=== PATIENT | female | born 1935 | race Caucasian/White ===

== ENCOUNTER 2016-06-24 08:06 | Day surgery (SDC) | payer MEDICARE, OTHER ==
[2016-06-20 12:43] LABS: BASOPHILS 0.1 %; BASOPHILS ABSOLUTE 0.01 10/3/uL (0.0-0.16); EOSINOPHILS 1.3 %; HEMATOCRIT 36.6 % (36.0-48.0); HEMOGLOBIN 12.9 g/dL (12.0-16.0); IMMATURE GRANULOCYTES 0.3 %; IMMATURE GRANULOCYTES ABSOLUTE 0.02 10/3/uL (0.0-0.11); LYMPHOCYTES 26.7 %; LYMPHOCYTES ABSOLUTE 2.04 10/3/uL (0.67-4.30); MEAN CORPUSCULAR HEMOGLOB 33.7 pg (26.0-34.0); MEAN PLATELET VOLUME 10.2 fL (9.2-13.0); MONOCYTES 7.5 %; MONOCYTES ABSOLUTE 0.57 10/3/uL (0.21-1.20); NEUTROPHILS 64.1 %; NEUTROPHILS ABSOLUTE 4.91 10/3/uL (2.02-8.40); PLATELET COUNT 235 10/3/uL (150-400); RBC DISTRIBUTION WIDTH 13.9 % (12.0-16.0); RED CELL COUNT 3.83 10/6/uL (4.0-5.6); WHITE BLOOD CELLS 7.7 10/3/uL (4.5-10.5)
[2016-06-20 12:44] LABS: MANUAL DIFF NO %; MEAN CORPUS HGB CONC 35.2 g/dL (32.0-36.0); MEAN CORPUSCULAR VOLUME 95.6 fL (80-100)
[2016-06-20 12:56] LABS: PROTIME (NOT ORD) 12.7 SEC (12.0-14.5)
[2016-06-20 12:57] LABS: PARTIAL THROMBO TIME 27.8 SEC (22.5-37.2)
[2016-06-20 13:02] LABS: CHLORIDE, SERUM 102 MMOL/L (96-112); CO2 (CARBON DIOXIDE) 28 MMOL/L (24-34); CREATININE 0.62 MG/DL (0.55-1.02); GFR AFRICAN AMERICAN 97 ML/MIN (>=60); GFR NON AFRICAN AMERICAN 83 ML/MIN (>=60); GLUCOSE, SERUM 93 MG/DL (60-99); POTASSIUM, SERUM 4.5 MMOL/L (3.5-5.3)
[2016-06-20 13:08] LABS: BUN (BLOOD UREA NITROGEN) 17 MG/DL (6-23); SODIUM, SERUM 140 MMOL/L (135-148)
--- NOTE | ~2016-06-24 | OP ---
Record Of Operation [facility] [address] [place]. [address] NAME: SHIRIN MARIE : 31 STATUS : [facility]#: [id number] AGE: 81 ADM/REG DATE : 06/24/16 MR#: [id number] REPORT SERV DATE: 06/25/16 DICTATED BY: LUZ LEMON DATE: 06/25/16 REPORT STATUS : Draft TRANSCRIBED BY: MADINA DATE: 06/25/16 DATE OF PROCEDURE: 06/24/2016 PREOPERATIVE DIAGNOSIS: Nasal polyposis and chronic rhinosinusitis. POSTOPERATIVE DIAGNOSIS: Nasal polyposis and chronic rhinosinusitis. OPERATIVE PROCEDURE PERFORMED: 1. Bilateral endoscopic ethmoidectomy. 2. Right frontal sinusotomy. 3. Bilateral maxillary antrostomies. 4. Right nasal polypectomy. INDICATIONS AND SIGNIFICANT HISTORY: The patient is an 81-year-old female with significant history of sinonasal polyposis and chronic rhinosinusitis. She has had endoscopic- associated surgical therapy under sinuses many years ago and has since had return of nasal obstruction symptoms and chronic sinusitis, as well as exam in the office yielded a soft tissue polyp in the right middle meatus region. This was causing an obstructive sinusitis of the right frontal sinus and ethmoid sinuses. She was felt to benefit from surgical therapy given her extensive disease and was scheduled for such. OPERATIVE PROCEDURE AND FINDINGS: After informed consent was obtained, the patient was brought to the operating room and placed on the operating table in the supine position, at which point, general endotracheal anesthesia was induced by Anesthesia Service and the nose was prepped and draped in a standard fashion. At this point, CT scans have been previously pulled up in the room and the patient was identified, as well as a correct CT scans were identified. Endoscopy was performed initially of the right nasal cavity as the septal artery was burdened with nasal polyposis. There was noted to be a large polyp filling the middle meatus region. This was removed with a suction shaver and from previous sinus surgeries, she has had a near complete resection of her middle turbinate bilaterally. A small maxillary antrostomy was present. This was enlarged by resecting the residual portions of uncinate process. Next, the ethmoid bulla was pierced with a suction shaver and was taken from posteriorly, anteriorly, inferiorly, and then opened from posteriorly to anteriorly along the skull base. The landmarks were distorted given the lack of the middle turbinate. The polyp was tracked up to the frontal recess and when removed, frontal recess was identified. This was cannulated with a lighted guidewire and via Seldinger technique, a sinus balloon was advanced over the wire into the frontal sinus inferiorly inflated. After withdrawal of the balloon guidewire complex, there was noted to be a purulent drainage emanating from the right frontal sinus. This provided ventilation of the right frontal sinus and ethmoid, as well as the right maxillary sinuses. Attention was then turned to the left nasal cavity where a polypoid mucosa was appreciated along with the previously resected middle turbinate. The polypoid mucosa was removed from the stump of the middle turbinate, as well as from the ethmoid bulla and lateral nasal sidewall. There was noted to be maxillary antrum on the left side. The maxillary sinus was opened with a curved olive-tip suction and the maxillary antrostomy was enlarged using a suction shaver and backbiter forceps. The ethmoid bulla was entered using a J-curette and was additionally opened. Record Of Operation [facility] [id number] [place]. [address] NAME: SHIRIN MARIE : 31 STATUS : [facility]#: [id number] AGE: 81 ADM/REG DATE : 06/24/16 MR#: [id number] REPORT SERV DATE: 06/25/16 DICTATED BY: LUZ LEMON DATE: 06/25/16 REPORT STATUS : Draft TRANSCRIBED BY: MADINA DATE: 06/25/16 Caution was taken around the skull base as she had extensive prior surgery in this area and the bone was dense and not all ethmoid sinuses were opened along the left side. Frontal sinus also was not addressed as there was no radiographic or symptomatic disease noted. Two Propel sinus stents were then placed, one into the right nasal cavity and one in the left with great attempts made to hold these at the region of the middle meatus. The patient was then turned back toward anesthesia, aroused from anesthesia, and taken to the postanesthesia care unit in satisfactory condition. COMPLICATIONS: None. ESTIMATED BLOOD LOSS: Less than 50 mL. IV FLUIDS: Per Anesthesia. MILY/MADINA Luz Lemon M.D. / [id number] CC: Owen Mackey M.D.
[~2016-06-24 08:06] MED LIST: B12100T PO; ESTRADIOL PO; FISH-EPA1000 MG PO; MULTIPLE VIT PO; MULTIVIT/MIN PO; MULTIVITAMI1 PO; PREM.3B PO; VENTOLIN HFA INH; VITAMIN C100 MG PO
== END 2016-06-24 12:33 | disposition home or self-care (01) ==
LOC: SDC 08:06
PROVIDERS: Otolaryngology
PROC: 09BS4ZZ Excision of Right Frontal Sinus, Percutaneous Endoscopic Approach (ICD-10-PCS; 2016-06-24)
PROC: 099R4ZZ Drainage of Left Maxillary Sinus, Percutaneous Endoscopic Approach (ICD-10-PCS; 2016-06-24)
PROC: 099Q4ZZ Drainage of Right Maxillary Sinus, Percutaneous Endoscopic Approach (ICD-10-PCS; 2016-06-24)
PROC: 09BL8ZZ Excision of Nasal Turbinate, Via Natural or Artificial Opening Endoscopic (ICD-10-PCS; 2016-06-24)
PROC: 09BV4ZZ Excision of Left Ethmoid Sinus, Percutaneous Endoscopic Approach (ICD-10-PCS; principal; 2016-06-24 10:30)
PROC: 09BU4ZZ Excision of Right Ethmoid Sinus, Percutaneous Endoscopic Approach (ICD-10-PCS; 2016-06-24 10:30)
DX: J32.9 Chronic sinusitis, unspecified (principal); M06.9 Rheumatoid arthritis, unspecified; Z79.899 Other long term (current) drug therapy; Z96.1 Presence of intraocular lens; Z90.89 Acquired absence of other organs; Z90.49 Acquired absence of other specified parts of digestive tract; Z90.710 Acquired absence of both cervix and uterus; Z98.890 Other specified postprocedural states
CPT/HCPCS: 80048; 85025; 85610; 85730; 88305; 93005; A9270-GY; C1726; J0360; J2405; J2710; J3010